=== PATIENT | male | born 1940 | race Caucasian/White ===

== ENCOUNTER 2022-09-13 22:57 | Emergency (ER) | payer MEDICARE, OTHER, SELFPAY ==
--- NOTE | 2022-09-13 22:52 | ECG_ITS ---
APPROVED REPORT Exam: Resting ECG HR:71 bpm ECG Measurements Heart Rate 71 AXES SC 175 P 82 QRSd 141 QRS 103 QT 430 T 47 QTc 452 Conclusion ELECTRONIC VENTRICULAR PACEMAKER ABNORMAL RHYTHM ECG UNCONFIRMED REPORT Electronically signed by : Timi Benson MD 09/15/2022 13:29:18
[2022-09-13 22:58] VITALS: BP 139/66; PULSE 71; RESP 18; TEMP 37.7; O2SAT 96; BMI 34.9
--- NOTE | 2022-09-13 23:02 | XR_ITS ---
PROCEDURE INFORMATION: Exam: XR Chest Exam date and time: 09/13/2022 11:17 PM Age: 82 years old Clinical indication: Shortness of breath; Prior surgery; Additional info: SOA TECHNIQUE: Imaging protocol: Radiologic exam of the chest. Views: 1 view. COMPARISON: No relevant prior studies available. FINDINGS: Tubes, catheters and devices: Left-sided chest wall pacing device. Lungs: Probable retrocardiac opacity, may represent pneumonia in appropriate clinical setting. Pleural spaces: No pleural effusion. No pneumothorax. Heart/Mediastinum: The cardiac silhouette is prominent in size. Bones/joints: No acute osseous findings. IMPRESSION: Probable retrocardiac opacity, may represent pneumonia in appropriate clinical setting. Recommend imaging follow-up until complete resolution.
[2022-09-13 23:03] LABS: Influenza A, PCR Not Detected (NotDetected); Influenza B, PCR Not Detected (NotDetected)
[2022-09-13 23:40] LABS: Coronavirus 19, PCR Detected (NotDetected)
[2022-09-13 23:49] LABS: Chloride 96 mmol/L (98-107); Sodium 136 mmol/L (136-145)
[2022-09-13 23:52] LABS: Alanine Aminotransferase 44 U/L (12-78); Albumin Level 4.1 g/dl (3.5-5.0); Albumin/Globulin Ratio 1.1 (1.1-1.8); Alkaline Phosphatase 274 U/L (38-126); Anion Gap 14.7 mEq/L (5-15); Aspartate Amino Transferase 45 U/L (17-59); Bilirubin,Total 0.5 mg/dl (0.2-1.3); Blood Urea Nitrogen 55 mg/dl (9-20); Carbon Dioxide 32 mmol/L (22.0-30.0); Creatinine Clearance Estimated 38 mL/min (50-200); Estimated Glomerular Filt Rate 29 ml/min (>60); GFR (African American) 35 ML/MIN (>60); Globulin 3.6 g/dL (1.3-3.2); Total Protein,Serum 7.7 g/dl (6.3-8.2)
[2022-09-13 23:53] LABS: Calcium 9.7 mg/dl (8.4-10.2); Glucose 255 mg/dl (74-100)
[2022-09-13 23:54] LABS: Basophils # 0.1 K/mm3 (0-0.2); Basophils % 1.1 % (0.1-2.0); Eosinophils # 0.2 K/mm3 (0.0-0.4); Eosinophils % 2.2 % (0.1-12.0); Hematocrit 46.4 % (42.0-52.0); Lymphocytes # 0.7 K/mm3 (0.7-4.5); Lymphocytes % 9.7 % (10-50); Mean Corpuscular HGB Conc 32.4 g/dL (31.8-35.4); Mean Corpuscular Volume 104.8 fl (80-94); Monocytes # 0.6 K/mm3 (0.1-1.0); Monocytes % 8.5 % (1.7-9.3); Neutrophils # 5.9 K/mm3 (1.8-7.8); Neutrophils % 78.5 % (37.0-80.0); Platelet Count 188 K/mm3 (142-424); Red Blood Count 4.42 M/mm3 (4.60-6.20); Red Cell Distribution Width 14.5 % (11.5-17.5); White Blood Count 7.6 K/mm3 (4.8-10.8)
[2022-09-13 23:59] LABS: Potassium 6.7 mmoL/L (3.5-5.1)
[2022-09-14 00:01] VITALS: BP 128/59; PULSE 74; O2SAT 93
[2022-09-14 00:01] LABS: NT Pro Brain Natriuretic Pep. 332 pg/mL (0-450)
--- NOTE | 2022-09-14 00:01 | PC.NURSE ---
Pt provided with warm blanket
[2022-09-14 00:28] LABS: Acetone, Serum (Rapid) None Detected (None Detect)
--- NOTE | 2022-09-14 00:43 | CT_ITS ---
PROCEDURE INFORMATION: Exam: CT Chest Without Contrast; Diagnostic Exam date and time: 09/14/2022 12:42 AM Age: 82 years old Clinical indication: Other: Weakness; Prior surgery TECHNIQUE: Imaging protocol: Diagnostic computed tomography of the chest without contrast. Radiation optimization: All CT scans at this facility use at least one of these dose optimization techniques: automated exposure control; mA and/or kV adjustment per patient size (includes targeted exams where dose is matched to clinical indication); or iterative reconstruction. COMPARISON: CR XR CHEST PORTABLE 09/13/2022 11:17 PM FINDINGS: Tubes, catheters and devices: Left-sided chest wall pacing device. Lungs: Nonspecific bibasilar opacities, favoring atelectasis or pneumonia. Reticulonodular opacities in the right upper lobe, nonspecific, probably infectious or inflammatory. Pleural spaces: No pneumothorax. No pleural effusion. Heart: No pericardial effusion. Coronary artery disease. Lymph nodes: No enlarged lymph nodes. Vasculature: Extensive atherosclerotic calcifications. No thoracic aortic aneurysm. Bones/joints: Old-appearing posttraumatic/postsurgical changes in the right ribs. Soft tissues: Grossly unremarkable. IMPRESSION: 1. Nonspecific bibasilar opacities, favoring atelectasis or pneumonia. Recommend imaging follow-up until complete resolution. 2. Reticulonodular opacities in the right upper lobe, nonspecific, probably infectious or inflammatory. Recommend imaging follow-up until complete resolution as malignancy may have a similar appearance.
--- NOTE | 2022-09-14 00:43 | CT_ITS ---
PROCEDURE INFORMATION: Exam: CT Abdomen And Pelvis Without Contrast Exam date and time: 09/14/2022 12:42 AM Age: 82 years old Clinical indication: Other: Weakness TECHNIQUE: Imaging protocol: Computed tomography of the abdomen and pelvis without contrast. Radiation optimization: All CT scans at this facility use at least one of these dose optimization techniques: automated exposure control; mA and/or kV adjustment per patient size (includes targeted exams where dose is matched to clinical indication); or iterative reconstruction. COMPARISON: CR XR CHEST PORTABLE 09/13/2022 11:17 PM FINDINGS: Tubes, catheters and devices: Left-sided chest wall pacing device. Lungs: Several calcified pulmonary granulomas. Liver: No contour deforming lesion. Gallbladder and bile ducts: Cholecystectomy. Pancreas: No peripancreatic inflammatory changes. Spleen: No contour deforming lesion. Adrenal glands: No mass. Kidneys and ureters: Multiple bilateral renal cysts measuring up to 7.2 cm with several renal lesions that cannot be characterized as cysts for example 2.1 cm lesion in the upper pole of the left kidney. Stomach and bowel: Colonic diverticulosis without evidence of acute diverticulitis. Appendix: No evidence of appendicitis. Intraperitoneal space: No free air. No ascites. Vasculature: Atherosclerotic calcifications in the aorta and its branches. Lymph nodes: No grossly enlarged lymph nodes. Urinary bladder: Unremarkable as visualized. Reproductive: Postsurgical changes in the prostate. Bones/joints: No acute fracture. No suspicious osseous lesion. Soft tissues: Evaluation of solid abdominal viscera is significantly limited due to lack of intravenous contrast. Focal subcutaneous stranding in the right anterior abdominal wall, nonspecific, possibly hematoma. Other findings: Please refer to separate CT chest report for additional findings. IMPRESSION: 1. Multiple bilateral renal cysts measuring up to 7.2 cm with several renal lesions that cannot be characterized as cysts for example 2.1 cm lesion in the upper pole of the left kidney. Recommend correlation with MRI. 2. Focal subcutaneous stranding in the right anterior abdominal wall, nonspecific, possibly hematoma. Recommend imaging follow-up until complete resolution. 3. Please refer to separate CT chest report for additional findings. COMMENTS: Consistent with the [employer]'s Incidental Findings Committee white paper (J Am Jordyn Radiol 2018): Any incidental renal lesion less than 1 cm or classified as too small to characterize, or any incidental cystic renal lesion characterized as simple-appearing, is likely benign. No follow-up imaging is recommended for these lesions per consensus recommendations based on imaging criteria.
[2022-09-14 00:49] LABS: Troponin I 0.02 ng/ml (0.00-0.034)
[2022-09-14 00:54] VITALS: BP 101/85; PULSE 81; O2SAT 89
[2022-09-14 01:01] VITALS: BP 134/53; PULSE 82; O2SAT 89
[2022-09-14 01:31] VITALS: BP 122/49; PULSE 84; O2SAT 96
--- NOTE | 2022-09-14 01:47 | [facility].EDSOB ---
Discharge Plan Disposition Chief Complaint: Shortness of Breath/Dyspnea Referrals Follow up/Referrals: Luna Xiao [Primary Care Provider] - See instructions Clinical Impressions Clinical Impression: COVID-19, Acute hyperkalemia, CRI (chronic renal insufficiency) Discharge ED Provider: Enrrique Doherty Resp/SOB HPI General Chief Complaint: Shortness of Breath/Dyspnea Stated Complaint: SOA Time Seen by Provider: 09/14/22 01:47 Mode of Arrival: EMS Source of Information: Patient, EMS and Medical Record Limitations: No Limitations Description of Symptoms (Recalled from ER Triage Doc. by RN): pt c/o SOA, body aches, weakness that started 2 days ago. Family that pt lives with has tested positive for COVID History of Present Illness known exposure to covid-19 with low o2 sat and achey and feels weak - known diabetic has pacemaker and known renal insuff MD Complaint: shortness of breath Onset (ago): day(s) Context: other (exposure to covid-19) Severity: moderate Known history of: diabetes Associated symptoms: cough Treatment prior to arrival: bronchodilator Related Data Home oxygen amount: none Allergies Allergy/AdvReac Type Severity Reaction Status Date / Time Codeine Allergy Unknown Uncoded 10/30/17 15:13 Guaifenesin Allergy Unknown Uncoded 10/30/17 15:13 Sulfonamide Related Allergy Unknown Uncoded 10/30/17 15:13 PFSH PFSH Social History Smoking Status: Never smoker alcohol intake: never current occupational status: retired Travel in the last 8 weeks: None ROS Obtained: Yes All systems reviewed & no additional complaints except as documented Physical Exam General General appearance: alert and obese Head Head exam: normocephalic Eye Eye exam: Present PERRL and EOMI ENT ENT exam: Present mucous membranes dry Neck Neck exam: Present trachea midline Respiratory Respiratory exam: Present wheezes and other (dec bs bilat ); Absent respiratory distress Cardiovascular Cardiovascular exam: Present regular rate, systolic murmur and +S4 Abdominal Exam Abdominal exam: Present soft Extremities Exam Extremities exam: Present edema; Absent calf tenderness Neurological Exam Neurological exam: Present alert, oriented X3 and CN II-XII intact Psychiatric Psychiatric exam: Present normal affect Skin Skin exam: Absent rash Medical Decision Making Medical Records Medical records reviewed: Yes I reviewed the patient's medical records. Gustavo Inquiry Pt receiving controlled substance: No Vital Signs: 09/13/22 22:58 09/14/22 00:01 09/14/22 00:54 Temperature 99.9 F H Temperature Source Oral Pulse Rate 74 81 Pulse Rate [Right] 71 Respiratory Rate 18 Blood Pressure 128/59 L 101/85 L Blood Pressure [Right Arm] 139/66 Blood Pressure Mean 88 Blood Pressure Mean [Right Arm] 90 02 Sat by Pulse Oximetry 96 93 L 89 L Oxygen Delivery Method Room Air Oxygen Flow Rate (LPM) 09/14/22 01:01 09/14/22 01:31 Temperature Temperature Source Pulse Rate 82 84 Pulse Rate [Right] Respiratory Rate Blood Pressure 134/53 L 122/49 L Blood Pressure [Right Arm] Blood Pressure Mean 80 72 Blood Pressure Mean [Right Arm] 02 Sat by Pulse Oximetry 89 L 96 Oxygen Delivery Method Oxygen Flow Rate (LPM) 2 Lab Data Lab results reviewed: Yes I reviewed the patient's lab results. Lab Results 09/13/22 22:59: SARS-CoV-2 (PCR) Detected A, Influenza A Untype (PCR) Not detected, Influenza Type B (PCR) Not detected 09/13/22 23:35: WBC 7.6, RBC 4.42 L, Hgb 15.0, Hct 46.4, MCV 104.8 H, MCH 34.0 H, MCHC 32.4, RDW 14.5, Plt Count 188, MPV 8.0, Neut % (Auto) 78.5, Lymph % (Auto) 9.7 L, Mccormick % (Auto) 8.5, Eos % (Auto) 2.2, Baso % (Auto) 1.1, Neut # (Auto) 5.9, Lymph # (Auto) 0.7, Mccormick # (Auto) 0.6, Eos # (Auto) 0.2, Baso # (Auto) 0.1 09/13/22 23:35: Sodium 136, Potassium 6.7 H*, Chloride 96 L, Carbon Dioxide 32 H, Anion Gap 14.7, BUN 55 H, Creatinine 2.20 H, Estimated Creat Clear 38, Estimated GFR 29
[2022-09-14 02:19] LABS: Anion Gap 14.2 mEq/L (5-15); Blood Urea Nitrogen 57 mg/dl (9-20); Calcium 8.8 mg/dl (8.4-10.2); Carbon Dioxide 30 mmol/L (22.0-30.0); Chloride 99 mmol/L (98-107); Creatinine Clearance Estimated 41 mL/min (50-200); Estimated Glomerular Filt Rate 32 ml/min (>60); GFR (African American) 39 ML/MIN (>60); Glucose 291 mg/dl (74-100); Sodium 137 mmol/L (136-145)
[2022-09-14 02:23] LABS: Potassium 6.2 mmoL/L (3.5-5.1)
--- NOTE | 2022-09-14 02:24 | PC.NURSE ---
notified haroon of critical potassium 6.2
--- NOTE | 2022-09-14 02:29 | PC.NURSE ---
spoke with Everton @ [facility] and gave pt infomation. states will call back after checking bed status
--- NOTE | 2022-09-14 02:46 | PC.NURSE ---
Dr. Doherty speaking with Dr. Milan at the [facility]
--- NOTE | 2022-09-14 02:59 | PC.NURSE ---
pt notified of transfer to [facility]
[2022-09-14 03:29] VITALS: BP 129/51; PULSE 83; RESP 18; TEMP 37.7; O2SAT 96
== END 2022-09-14 03:52 | disposition short-term general hospital (02) ==
PROVIDERS: Emergency Provider Emergency Medicine; PCP Nurse Practitioner
DX: U07.1 COVID-19 (principal); E11.22 Type 2 diabetes mellitus with diabetic chronic kidney disease; R06.02 Shortness of breath; E87.5 Hyperkalemia; N18.9 Chronic kidney disease, unspecified; R53.1 Weakness; M79.10 Myalgia, unspecified site; Z79.51 Long term (current) use of inhaled steroids; Z95.0 Presence of cardiac pacemaker; Z88.2 Allergy status to sulfonamides; Z88.5 Allergy status to narcotic agent; Z88.8 Allergy status to other drugs, medicaments and biological substances
CPT/HCPCS: 71045; 71250; 74176; 80048; 80053; 82009; 83880; 84484; 85025; 93005; 94640; 96361; 96365; 96374; 96375; 99285; C9803; J2405; U0003; U0005